=== PATIENT | female | born 1945 | race American Indian/Alaskan Native ===

== ENCOUNTER 2020-10-12 12:51 | Outpatient (CLI) | payer MEDICARE ==
--- NOTE | 2020-10-12 16:00 | Mammography Report ---
BILATERAL DIGITAL DIAGNOSTIC MAMMOGRAM WITH CAD CONVENTIONAL, 10/12/2020 LEFT COMPLETE BREAST ULTRASOUND CLINICAL INFORMATION / INDICATION: MALIGNANT NEOPLASM OF UPPER INNER QUAD OF LEFT BREAST TECHNIQUE: Digital bilateral mammographic imaging was performed. Complete ultrasound of all four (4) quadrants was performed. This examination was interpreted with the benefit of Computer-Aided Detectio n (CAD) analysis. COMPARISON: Reports for mammograms and left breast ultrasound performed in [facility] in the summer 2019 . FINDINGS: Breast Density: The breasts are heterogeneously dense, which may obscure small masses. MAMMOGRAPHIC FINDINGS: In the 11:00 position anterior depth of the left breast is a mass measuring 2. 1 x 2.1 cm located at the site of the palpable abnormality marker that is isodense to the surrounding breast tissue. A clip is seen posteriorly along the upper outer left breast. No other significant ab normality of the left breast. No suspicious mass, calcification, asymmetry or architectural distortion in the right breast. There are bilateral benign-appearing calcifications. ULTRASOUND FINDINGS: Complete sonographic evaluation of all 4 quadrants and retroareolar region was p erformed. A hypoechoic solid mass is seen in the 11:00 position of the left breast 3 cm from the ni pple measuring 2.4 x 2.0 x 1.4 cm with internal color flow. No posterior acoustic shadowing or calcif ication is seen. In the left axilla is an abnormal-appearing lymph node measuring 4 mm in short axis dimension with suspicious cortical thickening and no distinct fatty hilum. IMPRESSION: Left breast cancer as above with a suspected left axillary metastatic node. Follow up recommendation: Surgical consult BI-RADS Category 6: Known Biopsy-Proven Malignancy. A "normal" or negative report should not discourage follow up or biopsy of a clinically significant f inding. A written summary of these findings will be mailed to the patient. The patient will be entered into a mammography reporting system which will generate a reminder letter for the patient's next appointmen t at the appropriate interval. According to the [employer], yearly mammograms are recommended starting at age 40 and continuing as long as a woman is in good health. Breast MRI is recommended for women with an aminah roximately 20-25% or greater lifetime risk of breast cancer, including women with a strong family his tory of breast or ovarian cancer and women who have been treated for Hodgkin's disease. Signer Name: Dom Martin MD Signed: 10/12/2020 3:56 PM Workstation Name: [id number]
--- NOTE | 2020-10-12 16:04 | Mammography Report ---
DIGITAL DIAGNOSTIC MAMMOGRAM CONVENTIONAL, 10/12/2020 CLINICAL INFORMATION / INDICATION: Status post ultrasound-guided biopsy of a left breast mass and lef t axillary node. TECHNIQUE: Digital left mammographic imaging was performed. COMPARISON: Diagnostic mammogram performed earlier today. FINDINGS: Breast Density: The breast is heterogeneously dense, which may obscure small masses. Expected post biopsy changes are seen with concordant clip placement in the left breast mass and axil thierry node. IMPRESSION: Expected postbiopsy appearance of the left breast with concordant clip placement. Please correlate with the pathology report. Follow up recommendation: Surgical consult Post biopsy imaging. A "normal" or negative report should not discourage follow up or biopsy of a clinically significant f inding. A written summary of these findings will be mailed to the patient. The patient will be entered into a mammography reporting system which will generate a reminder letter for the patient's next appointmen t at the appropriate interval. According to the [employer], yearly mammograms are recommended starting at age 40 and continuing as long as a woman is in good health. Breast MRI is recommended for women with an aminah roximately 20-25% or greater lifetime risk of breast cancer, including women with a strong family his tory of breast or ovarian cancer and women who have been treated for Hodgkin's disease. Signer Name: Dom Martin MD Signed: 10/12/2020 3:59 PM Workstation Name: [id number]
--- NOTE | 2020-10-14 08:06 | Ultrasound Report ---
ULTRASOUND GUIDED LEFT BREAST BIOPSY, 10/12/2020 ULTRASOUND GUIDED LEFT AXILLARY NODE BIOPSY, 10/12/2020 CLINICAL INFORMATION / INDICATION: MALIGNANT NEOPLASM OF UPPER INNER QUAD OF LEFT BREAST. COMPARISON: Diagnostic bilateral mammogram and left breast ultrasound performed today. Reports for le ft breast diagnostic workup performed in the summer 2019 in [facility]. PROCEDURE: Risks, benefits, and indications to the procedure were discussed with the patient in detail, includin g bleeding, infection, hematoma formation, and inadequate tissue sampling. The patient agreed to proc eed with both verbal and written consent. A timeout procedure was performed with two patient identifi ers. The breast was prepped and draped in the usual sterile fashion. Lidocaine 1% with and without epineph rine were used for local anesthesia. Under direct ultrasound guidance, multiple core samples were obt ained of the left breast mass and the left axillary node. Biopsy markers were then placed. Biopsy de vice was removed and hemostasis achieved with manual pressure. A sterile dressing was applied to the skin. The patient tolerated the procedure without difficulty. No complications were encountered. Postbiopsy instructions were discussed with the patient and given in writing. Specimens were sent to pathology. IMPRESSION: 1. Technically successful ultrasound guided left breast mass and left axillary node biopsy. Biopsy results are pending and will be reported in an addendum. Signer Name: Dom Martin MD Signed: 10/12/2020 3:46 PM Workstation Name: [id number]
== END 2020-10-12 12:52 | disposition home or self-care (01) ==
LOC: SPVWC 12:51
PROVIDERS: ATTEND Surgery
DX: C50.212 Malignant neoplasm of upper-inner quadrant of left female breast (principal); I89.8 Other specified noninfective disorders of lymphatic vessels and lymph nodes; R92.8 Other abnormal and inconclusive findings on diagnostic imaging of breast
CPT/HCPCS: 38505; 76942; 77066; 88305

== ENCOUNTER 2020-11-15 12:29 | Outpatient (CLI) | payer MEDICARE ==
--- NOTE | 2020-11-16 08:43 | Magnetic Resonance Report ---
Bilateral breast MR without and with contrast. History: Recently diagnosed left breast malignancy, assess extent of disease. Comparison: 10/12/2020. Technique: Multiplanar multisequence MR images of the breast were obtained before and after the intra venous administration of intravenous contrast. Post processing analysis and review was performed on a separate computer workstation. Findings: Breast composition is heterogeneously dense. There is mild background parenchymal enhancement within both breasts. LEFT BREAST: Located within the left upper inner breast at anterior to middle depth is a 3.5 x 3.5 x 3.1 cm irregular enhancing mass. This represents the site of known biopsy-proven malignancy. This dir ectly abuts the skin and there is overlying skin thickening concerning for the presence of dermal inv asion. No evidence of pectoralis muscle invasion. A separate 9 x 8 x 7 mm irregular enhancing mass is located slightly more centrally and superiorly within the left breast. (Image [id number] of [id number]). This is l ocated 2 cm from the known biopsy-proven malignancy and is suspected to represent a second satellite nodule. RIGHT BREAST: No discrete enhancing mass, dominant focus, or other abnormal enhancement within the ri ght breast. Borderline enlarged left axillary lymph node is noted. This may be reactive due to the recent biopsy as a left axillary lymph node biopsy was performed and was found to be benign. No abnormal right axil thierry or internal mammary lymph nodes. Impression: Known biopsy-proven malignancy within the left breast at the 11:00 position measures up to 3.5 cm on MRI. There is skin thickening throughout the anterior left breast consistent with dermal involvement. A separate 9 mm irregular enhancing mass located slightly more centrally and superiorly with the lef t breast is suspected represent a satellite nodule. This is located 2 cm from the known biopsy-proven malignancy. BIRADS 6: Known biopsy proven malignancy. A normal MRI does not exclude the presence of some forms of breast malignancy as literature reports s uggest that some forms of ductal carcinoma in situ or lobular carcinoma, particularly, may not be det ected on MRI. The sensitivity and specificity of MRI for cancers under 5 mm may be reduced. MRI does not replace the recommendation for annual conventional mammographic evaluation and should be used as an adjunct to mammography and physical examination as necessary. Signer Name: Ulises Weinberg MD Signed: 11/16/2020 8:39 AM Workstation Name: [id number]
== END 2020-11-15 12:30 | disposition home or self-care (01) ==
LOC: SPVIMAG 12:29
PROVIDERS: ATTEND Surgery
DX: C50.212 Malignant neoplasm of upper-inner quadrant of left female breast (principal); N63.22 Unspecified lump in the left breast, upper inner quadrant; Z85.3 Personal history of malignant neoplasm of breast
CPT/HCPCS: A9577; C8908; 77049

== ENCOUNTER 2020-12-28 11:12 | Outpatient (CLI) | payer MEDICARE | END 2020-12-28 11:13 | disposition home or self-care (01) | LOC: LABHHL 11:12 | PROVIDERS: ATTEND Surgery | DX: L90.5 Scar conditions and fibrosis of skin (principal); D04.5 Carcinoma in situ of skin of trunk; L98.9 Disorder of the skin and subcutaneous tissue, unspecified; C50.212 Malignant neoplasm of upper-inner quadrant of left female breast | CPT/HCPCS: 88305; 88341; 88342 ==

== ENCOUNTER 2021-01-11 08:02 | Observation (INO) | payer MEDICARE ==
--- NOTE | 2021-01-09 11:49 | Anesthesia Consultation ---
Anesthesia Consult and Med Hx Date of service: 01/11/21 - Airway Anesthetic Teeth Evaluation: Good, Dentures, Edentulous (Upper) ROM Head & Neck: Adequate Mental/Hyoid Distance: Adequate Mallampati Class: Class II Intubation Access Assessment: Good - Pre-Operative Health Status ASA Pre-Surgery Classification: ASA2 Proposed Anesthetic Plan: General Nerve Block: ES - Pulmonary Hx Respiratory Symptoms: No (+2FS) - Cardiovascular System Hx Hypertension: Yes - Central Nervous System Hx Neuromuscular Disorder: Yes (Vertigo) Hx Psychiatric Problems: No - Gastrointestinal Hx Gastroesophageal Reflux Disease: No - Endocrine Hx Non-Insulin Dependent Diabetes: No Hx Thyroid Disease: No - Hematic Hx Sickle Cell Disease: No - Other Systems Hx Alcohol Use: Yes (Occas) Hx Cancer: Yes Hx Obesity: Yes
[~2021-01-11 08:02] MED LIST: ACETAMINOPHEN 325 MG TAB PO NR; CELECOXIB 200 MG CAP PO NR; MAGNESIUM OXIDE 400 MG TAB PO NR; METHYLENE BLUE 50 MG/10 ML AMP ONE; MIDAZOLAM 2 MG/2 ML INJ IV NR; SODIUM CHLORIDE P/F VIAL 10 ML 10 ML ONE; WATER FOR IRRIG STERILE 1,500 ML BOTTLE IR ONE; ceFAZolin/Water 2 GM/20 ML 2 GM/20 ML SYRINGE IV NR; fentaNYL 100 MCG/2 ML INJ IV NR
[2021-01-11] MEDS: LACTATED RINGERS 1,000 ML IV SCH ×2 (09:00→18:06)
[2021-01-11] MEDS ORDERED: BUPIVACAINE/PF (0.25%) 2.5 MG/ML 30 ML VIAL INFILTRATI ONE (09:07)
[2021-01-11] MEDS ORDERED: dexAMETHasone 4 MG/ML VIAL ONE (09:08)
[2021-01-11] MEDS ORDERED: HYDROmorphone 1 MG/1 ML INJ ONE (09:14)
[2021-01-11] MEDS ORDERED: propofoL 200 MG/20 ML VIAL IV ONE (09:15)
[2021-01-11] MEDS ORDERED: ROCURONIUM 50 MG/5 ML INJ IV ONE (09:15)
[2021-01-11] MEDS ORDERED: LIDOCAINE MPF (2%) 20 MG/1 ML VIAL 5 ML ONE (09:15)
[2021-01-11] MEDS ORDERED: ONDANSETRON 4 MG/2 ML INJ IV PRN ×2 (09:26→13:43)
[2021-01-11] MEDS ORDERED: HYDROmorphone 1 MG/1 ML INJ IV PRN ×2 (09:26)
--- NOTE | 2021-01-11 09:26 | Anesthesia Day of Surgery ---
Anesthesia Day of Surgery - Day of Surgery Patient Examined: Yes Patient H&P Reviewed: Yes Patient is NPO: Yes
[2021-01-11] MEDS ORDERED: SODIUM CHLORIDE 0.9% P/F 10 ML VIAL INFILTRATI ONE (10:01)
[2021-01-11] MEDS ORDERED: METHYLENE BLUE 50 MG/10 ML AMP IRRIGATION ONE (10:01)
[2021-01-11] MEDS ORDERED: ONDANSETRON 4 MG/2 ML INJ ONE (10:49)
[2021-01-11] MEDS ORDERED: dexAMETHasone 20 MG/5 ML VIAL ONE (10:49)
[2021-01-11] MEDS ORDERED: ePHEDrine SULFATE 50 MG/1 ML INJ ONE (10:52)
[2021-01-11] MEDS ORDERED: GLYCOPYRROLATE 0.4 MG/2 ML INJ ONE (10:58)
[2021-01-11] MEDS ORDERED: LACTATED RINGERS 1,000 ML ONE ×2 (11:35→13:34)
[2021-01-11] MEDS ORDERED: WATER FOR IRRIG STERILE 1,500 ML BOTTLE IR ONE (11:54)
[2021-01-11] MEDS ORDERED: HYDROmorphone 2 MG TAB PO PRN (13:43)
[2021-01-11] MEDS ORDERED: ACETAMINOPHEN 325 MG TAB PO PRN (13:43)
[2021-01-11] MEDS ORDERED: oxyCODONE /ACETAMINOPHEN 5-325MG TAB PO PRN (13:43)
[2021-01-11] MEDS ORDERED: diphenhydrAMINE 25 MG CAP PO PRN (13:43)
[2021-01-11] MEDS ORDERED: METOCLOPRAMIDE 10 MG TAB PO PRN (13:43)
--- NOTE | 2021-01-11 13:43 | Short Stay Summary ---
Short Stay Documentation Date of service: 01/11/21 - History H&P: obtained from office - Allergies and Medications Current Medications: Allergies No Known Allergies Allergy (Unverified 01/05/21 12:09) Home Medications Medication Instructions Recorded Confirmed Last Taken Type amLODIPine [Norvasc] 5 mg PO DAILY 01/09/21 01/11/21 01/10/21 19:30 History Active Medications Acetaminophen (Acetaminophen 325 Mg Tab) 650 mg PO ONCE NR Stop: 01/11/21 20:00 Last Admin: 01/11/21 08:31 Dose: 650 mg Documented by: Celecoxib (Celecoxib 200 Mg Cap) 200 mg PO PREOP NR Stop: 01/11/21 20:00 Last Admin: 01/11/21 08:31 Dose: 200 mg Documented by: Fentanyl (Fentanyl 100 Mcg/2 Ml Inj) 100 mcg IV ONCE NR Stop: 01/11/21 22:00 Last Admin: 01/11/21 09:17 Dose: 100 mcg Documented by: Hydromorphone HCl (Hydromorphone 1 Mg/1 Ml Inj) 0.25 mg IV Q10MIN PRN PRN Reason: Pain, Moderate (4-6) Stop: 01/11/21 23:00 Hydromorphone HCl (Hydromorphone 1 Mg/1 Ml Inj) 0.5 mg IV Q10MIN PRN PRN Reason: Pain , Severe (7-10) Stop: 01/11/21 22:00 Cefazolin Sodium (Ancef/Sterile Water 2 Gm/20 Ml) 2 gm in 20 mls @ 80 mls/hr IV PREOP NR; Protocol Stop: 01/11/21 23:59 Lactated Ringer's (Lactated Ringers) 1,000 mls @ 125 mls/hr IV DIRECT GALILEA Last Admin: 01/11/21 09:00 Dose: 125 mls/hr Documented by: Magnesium Oxide (Magnesium Oxide 400 Mg Tab) 400 mg PO ONCE NR Stop: 01/11/21 20:00 Last Admin: 01/11/21 08:31 Dose: 400 mg Documented by: Midazolam HCl (Midazolam 2 Mg/2 Ml Inj) 2 mg IV PREOP NR Stop: 01/11/21 23:59 Last Admin: 01/11/21 09:17 Dose: 2 mg Documented by: Ondansetron HCl (Ondansetron 4 Mg/2 Ml Inj) 4 mg IV ONCE PRN PRN Reason: Nausea And Vomiting Stop: 01/11/21 20:00 - Brief post op/procedure progress note Date of procedure: 01/11/21 Pre-op diagnosis: Left breast cancer upper inner quadrant Post-op diagnosis: same Procedure: Left total mastectomy with SLNB Anesthesia: GETA Findings: Left breast mass with clip present; x1 SLN and negative for malignancy Surgeon: MCKENZIE AVALOS Estimated blood loss: 50-100ml Pathology: list (left total mastectomy; x1SLN) Specimen disposition: to lab Condition: stable - Disposition Condition at discharge: Good Disposition: DC/TX-02 SHRT-TRM GEN HOSP IP Short Stay Discharge Plan Activity: other (no heavy lifting) Diet: regular Wound: keep clean and dry (wear breast binder) Follow up with: MCKENZIE AVALOS MD [Staff Physician] - 7 Days
[2021-01-11] MEDS ORDERED: LACTATED RINGERS 1,000 ML IV SCH (13:45)
[2021-01-11] MEDS ORDERED: MORPHINE 2 MG/1 ML INJ IV PRN (13:53)
--- NOTE | 2021-01-11 14:11 | Operative Report ---
Operative Report Operative Report: Operative Report: Date of Service: January 11, 2021 Preoperative diagnosis: Left breast cancer of the upper inner quadrant Postoperative diagnosis: Same Procedure: Left total mastectomy with SLNB Surgeon: Kimberley López M.D. Surgical Scrub Technologist: Kin Rodriguez M.D. Anesthesia: Gen. 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 Left breast mass at the 11:00 position 3 cm FN of 3 cm. Patient was diagnosed with left breast cancer in April 2020 in [facility] and did not proceed with surgery and moved to [place] recently. Recommendations are to proceed with neoadjuvant chemotherapy and she declined. Skin punch biopsy recently performed given concerns for skin involvement with negative findings. Given prior breast cancer history diagnosed in 2012, breast conservation not recommended given prior left chest wall radiation. She was diagnosed with left breast cancer in 2012 and underwent a left partial mastectomy with SLNB and she completed radiation therapy and 5 years of letrozole. She wished to proceed with the above procedure. She understands that chemotherapy is still recommended given triple negative breast cancer. She understands the role of chemotherapy for local and distal disease control; patient declined chemotherapy and understands her increase risk for breast cancer recurrence and contralateral breast cancer. Left axillary lymph node biopsy prior to surgery with negative findings. Procedure in detail: The patient was taken to the operating room and was placed supine. Gen. anesthesia was administered. The left nipple was injected with radioisotope and 1 cc of methylene blue. Known palpable raised left breast cancer mass at the 11:00 position 3-5 cm FN with thickened and asymmetric skin present anterior to mass and telangestia present of the lower inner and lower outer quadrant. Bilateral chest and axillas were prepped and draped in the normal sterile operative fashion. Timeout was performed. Typical mastectomy incision marking was made to encompass known area of malignancy and ultrasound used as well. Attention was taken towards the left breast. A gamma probe was inserted into the axilla to identify the sentinel lymph node location with uptake noted. A skin incision was made with a 10 blade knife and dissection taken down to the subcutaneous tissues. Subcutaneous tissues were edematous and vascular. First began raising of the superior flap to the level of the clavicle superiorly and posteriorly to the pectoralis muscle. Followed by raising of the medial flap to the level of the sternum and posteriorly to the pectoralis muscle. Followed by raising of the lateral flap to the level of the latissimus dorsi muscle and taken down posteriorly. The gamma probe was inserted into the axilla, the axillary fascia was opened and one SLN identified with good uptake present. SLN sent to pathology with negative findings of malignancy on frozen section. Axillary cavity was evident of prior probable near ALND with minimal remaining axillary contents; tissue present lateral to thorodorsal bundle. Then proceeded with raising of the inferior flap to the level of the inframammary fold taken posterior to the pectoralis muscle. The mastectomy/breast was removed from the pectoralis muscle without incident. The specimen was appropriately marked and sent to radiology with findings of breast clip present and sent to pathology. Attention was then taken towards the left axilla. First began opening of the axillary fascia further. Ultrasound was used and no suspicious axillary lymph nodes were seen sonographically within the axilla. Given no suspicious findings and SLN negative on frozen section, did not proceed with a completion ALND. Axillary tissue that was anterior to SLN was sent for permanent. The chest wall was irrigated and suctioned. Hemostasis was obtained. Additional inferior mastectomy skin was taken. Then proceeded with chest wall closure. One 19 Argentine CLARICE drain and one 15 Argentine CLARICE were placed, within the chest and axilla. The subcutaneous tissues were approximated and closed using interrupted 3-0 Vicryl. The skin was then closed using running 4-0 Monocryl followed by dermabond. She tolerated surgery very well and was awaken from anesthesia and then transported to PACU in good condition.
--- NOTE | 2021-01-11 15:43 | Post Anesthesia Evaluation ---
- Post Anesthesia Evaluation Patient Participated: Yes Airway Patent: Yes Stable Respiratory Function: Yes Nausea/Vomiting: No Temp > 96.8F: Yes Pain Manageable: Yes Adequeate Hydration: Yes Anesthesia Complications: No Block Receding Appropriately: Yes Patient on Ventilator: No
--- NOTE | 2021-01-11 17:29 | Mammography Report ---
LEFT BREAST SPECIMEN RADIOGRAPH INDICATION / CLINICAL INFORMATION: Post excisional biopsy. COMPARISON: Bilateral mammography 10/12/20. FINDINGS: There is an irregular mass with an associated biopsy clip in the center of the submitted breast speci men. 2 additional biopsy clips are located along the margin of the specimen. Signer Name: Tramaine Thomas MD Signed: 01/11/2021 5:25 PM Workstation Name: [id number]
[2021-01-11] MEDS: DOCUSATE SODIUM 100 MG CAP PO SCH (21:24)
[2021-01-12] MEDS: LACTATED RINGERS 1,000 ML IV SCH (05:20)
--- NOTE | 2021-01-12 08:41 | Progress Note ---
Assessment and Plan This is a 75 year old lady with left breast Stage II/III, POD#1 left total mastectomy with SLNB. 1. No acute events overnight. 2. Pain in good control. 3. Left chest incisions c/d/i, skin well perfused, no hematoma. 4. CLARICE drain education. 5. D/C planning for today. Subjective Date of service: 01/12/21 Principal diagnosis: Stage II/III left breast cancer Interval history: POD#1 left total mastectomy with SLNB Objective - Constitutional Vitals: Vital Signs - 12hr 01/11/21 01/11/21 01/12/21 21:00 21:18 02:24 Temperature 97.8 F 98.3 F Pulse Rate 89 68 Pulse Rate [ 70 Right Radial] Respiratory 18 18 18 Rate Blood Pressure 138/79 135/69 O2 Sat by Pulse 96 97 Oximetry 01/12/21 05:51 Temperature 97.2 F L Pulse Rate 77 Pulse Rate [ Right Radial] Respiratory 18 Rate Blood Pressure 129/68 O2 Sat by Pulse 96 Oximetry General appearance: Present: no acute distress - EENT Eyes: PERRL, EOM intact ENT: hearing intact, clear oral mucosa, dentition normal Ears: bilateral: normal - Neck Neck: supple, normal ROM - Respiratory Respiratory effort: normal - Breasts Breasts: other (left chest incision c/d/i; no hematoma, skin well perfused; CLARICE drain to bulb suction) - Cardiovascular Rhythm: regular Extremities: no ischemia, pulses intact, pulses symmetrical, No edema, normal temperature, normal color - Gastrointestinal General gastrointestinal: Present: soft, non-tender, non-distended Rectal Exam: deferred - Genitourinary Female genitourinary: deferred - Integumentary Integumentary: clear, warm, dry - Musculoskeletal Musculoskeletal: strength equal bilaterally - Neurologic Neurologic: CNII-XII intact, moves all extremities - Psychiatric Psychiatric: appropriate mood/affect, intact judgment & insight, memory intact, cooperative Medications & Allergies - Medications Allergies/Adverse Reactions: Allergies No Known Allergies Allergy (Unverified 01/05/21 12:09) Home Medications: Home Medications Medication Instructions Recorded Confirmed Last Taken Type amLODIPine [Norvasc] 5 mg PO DAILY 01/09/21 01/11/21 01/10/21 19:30 History oxyCODONE /ACETAMINOPHEN [Percocet 1 tab PO Q6HR PRN #20 tablet 01/11/21 Unknown Rx 5/325] Active Medications: Generic Name Dose Route Start Last Admin Trade Name Freq PRN Reason Stop Dose Admin Acetaminophen 650 mg 01/11/21 13:43 Acetaminophen 325 Mg Tab PO Q6H PRN Pain MILD(1-3)/Fever >100.5/SALAS Diphenhydramine HCl 25 mg 01/11/21 13:43 Diphenhydramine 25 Mg Cap PO Q8H PRN Itching Docusate Sodium 100 mg 01/11/21 22:00 01/11/21 21:24 Docusate Sodium 100 Mg Cap PO 100 mg BID GALILEA Administration Hydromorphone HCl 2 mg 01/11/21 13:43 Hydromorphone 2 Mg Tab PO Q6H PRN Pain , Severe (7-10) Lactated Ringer's 1,000 mls @ 125 mls/hr 01/11/21 06:00 01/12/21 05:20 Lactated Ringers IV 125 mls/hr DIRECT GALILEA Administration Lactated Ringer's 1,000 mls @ 125 mls/hr 01/11/21 13:45 Lactated Ringers IV DIRECT GALILEA Metoclopramide HCl 10 mg 01/11/21 13:43 Metoclopramide 10 Mg Tab PO Q6H PRN Nausea And Vomiting Morphine Sulfate 2 mg 01/11/21 13:53 Morphine 2 Mg/1 Ml Inj IV Q4H PRN Pain, Moderate (4-6) Ondansetron HCl 4 mg 01/11/21 13:43 Ondansetron 4 Mg/2 Ml Inj IV Q8H PRN N/V unrelieved by Pooja Oxycodone/Acetaminophen 1 tab 01/11/21 13:43 Oxycodone /Acetaminophen 5-325mg Tab PO Q6H PRN Pain, Moderate (4-6) Sodium Chloride 10 ml 01/11/21 13:43 Sodium Chloride 0.9% 10 Ml Flush Syringe IV PRN PRN LINE FLUSH
[2021-01-12] MEDS: DOCUSATE SODIUM 100 MG CAP PO SCH (10:12)
[2021-01-12 12:23] VITALS: BP 132/65
== END 2021-01-12 13:30 | disposition home or self-care (01) ==
LOC: OR 08:02 → OB 13:43
PROVIDERS: ADMIT Surgery; ATTEND Surgery
DX: C50.212 Malignant neoplasm of upper-inner quadrant of left female breast (principal); Z20.822 Contact with and (suspected) exposure to COVID-19; Z85.3 Personal history of malignant neoplasm of breast
CPT/HCPCS: 19303; 38525; 38792; 64450; 76098; 78800; 88305; 88309; 88331; 88333; A9541; G0378; J0690; J1100; J1170; J2250; J2405; J2704; J3010; J7120; Q9968; U0003; 88307

== ENCOUNTER 2021-03-31 12:47 | Outpatient (CLI) | payer MEDICARE ==
--- NOTE | 2021-04-03 11:03 | Mammography Report ---
DIGITAL SCREENING MAMMOGRAM WITH TOMOSYNTHESIS WITH CAD, 03/31/2021 CLINICAL INFORMATION / INDICATION: Routine Screening Mammography. TECHNIQUE: Digital right 2D and 3D mammography with tomosynthesis was obtained in the craniocaudal a nd mediolateral oblique projections. Computer-Aided Detection (CAD) analysis was used for interpreta tion of this study. COMPARISON: Prior mammogram 10/12/2020 FINDINGS: Breast Density: The breasts are heterogeneously dense, which may obscure small masses. No dominant mass, suspicious calcifications, or architectural distortion in the right breast. There has been no significant change compared with the prior examination. IMPRESSION: No mammographic evidence of malignancy. Follow up recommendation: Routine yearly BI-RADS Category 1: Negative. A "normal" or negative report should not discourage follow up or biopsy of a clinically significant f inding. A written summary of these findings will be mailed to the patient. The patient will be entered into a mammography reporting system which will generate a reminder letter for the patient's next appointmen t at the appropriate interval. The [employer] recommends yearly mammograms starting at age 40 and continuing as l nadia as a woman is in good health. Breast MRI is recommended for women with an approximate 20-25% or greater lifetime risk of breast cancer, including women with a strong family history of breast or ova morales cancer or who have been treated for Hodgkin's disease. Signer Name: Thi Dee MD Signed: 04/03/2021 10:59 AM Workstation Name: [id number]
== END 2021-03-31 12:48 | disposition home or self-care (01) ==
LOC: SPVWC 12:47
PROVIDERS: ATTEND Surgery
DX: Z12.31 Encounter for screening mammogram for malignant neoplasm of breast (principal); N64.89 Other specified disorders of breast
CPT/HCPCS: 77063